=== PATIENT | female | born 1970 | race Caucasian/White ===

== ENCOUNTER 2017-12-22 02:52 | Emergency (ER) | payer MEDICAID ==
[~2017-12-22] VITALS: Ht 165.1 cm; Wt 66.8 kg
[2017-12-22 03:02] VITALS: BP 170/103
--- NOTE | 2017-12-22 03:02 | NUR ---
PT PRESENTS TO ED WITH C/O HIGH BLOOD GLUCOSE AND BURNING WITH URINATION AND FREQUENCY. PT STATES FOULD SMELLING URINE. PT STATES SHE HAS NOT TAKEN HER PO DM MEDS (METFORMIN). SHE IS OUT OF HER METOPROLOL 25 MG. PT STATES HX OF ANXIETY AND IS WITHOUT ANXIETY MEDS. VSS AT THIS TIME. A&OX4. POSITIONED IN BED FOR COMFORT. ER MD AWARE. CONTINUE TO MONITOR.
--- NOTE | 2017-12-22 03:02 | NUR ---
pt ambulated to bed 8 with vss.
[2017-12-22 03:53] VITALS: BP 170/103
--- NOTE | 2017-12-22 03:53 | NUR ---
Patient discharged with v/s stable. Written and verbal after care instructions given and explained. Patient alert, oriented and verbalized understanding of instructions. Ambulatory with steady gait. All questions addressed prior to discharge. ID band removed. Patient advised to follow up with PMD. Rx of Cipro, metformin, motrin, Prednisone, Metoprolol given. Patient educated on indication of medication including possible reaction and side effects. Opportunity to ask questions provided and answered.
== END 2017-12-22 03:02 | disposition home or self-care (01) ==
LOC: MED 02:52
DX: N39.0 Urinary tract infection, site not specified (principal); R05 Cough; R07.9 Chest pain, unspecified; E11.9 Type 2 diabetes mellitus without complications; I10 Essential (primary) hypertension; Z76.0 Encounter for issue of repeat prescription; Z90.49 Acquired absence of other specified parts of digestive tract
CPT/HCPCS: 81002; 81025; 99283

== ENCOUNTER 2018-01-25 14:06 | Inpatient (IN) | payer MEDICAID ==
[~2018-01-25] VITALS: Ht 157.5 cm; Wt 69.9 kg
[2018-01-25 14:11] VITALS: BP 102/63
--- NOTE | 2018-01-25 14:11 | NUR ---
PATIENT AMBULATED TO BED 9 AT THIS TIME.
--- NOTE | 2018-01-25 14:20 | NUR ---
47 bib self with c/o intermittent non radiating "sharp" midsternal/left sided chest with dry non productive cough x 2 days. Patient also report of SOB. RR are even and unlabored. Clear speech with full sentences. Skin is dry/warmth/color apprioriate for ethnicity. Pt is aox4 to person, place, situation, and time. NAD. VSS. Patient changed into gown and to cardiac, pulse, pulse ox, and bp monitoring. Awaiting er md cheema. Will continue to monitor.
[2018-01-25] MEDS ORDERED: ALBUTEROL SULFATE/IPRATROPIU 3 ML SOL IH ONE (15:00)
--- NOTE | 2018-01-25 15:40 | NUR ---
PT STATES THAT SHE WANTS TO "KILL MYSELF", MAYO KRUEGER MADE AWARE. JOSE BEAL TO COME EVALUATE
[2018-01-25] MEDS ORDERED: NACL 0.9% 1,000 ML IV ONE (15:41)
[2018-01-25] MEDS ORDERED: SODIUM BICARBONATE 8.4% PFS 50 MEQ/50 ML SYR IVP ONE (15:45)
--- NOTE | 2018-01-25 15:52 | NUR ---
PT STATES SHE IS GOING TO KILL HERSELF NOW. PT STATES, "I NEED TO KILL MYSELF NOW." ASKED PT WHY SHE NEEDS TO SKILL HERSELF AND PT WOULD NOT RESPOND. I ASKED PT IF SHE HAD A PLAN. PT WOULD NOT RESPOND. PT JUST STATES, "I NEED TO GO, AND KILL MYSELF." JOSE BEAL CALLED AT THIS TIME. PT MADE AWARE. PT STATES, "NO I AM GOING HOME, NOW I DIDN'T MEAN IT, I JUST HAVE ANXIETY, DON'T CALL THE PERMIT AGENT." EXPLAINED TO PT FOR HER SAFETY SHE CANNOT LEAVE AND NEEDS TO WAIT FOR JOSE BEAL TO COME
--- NOTE | 2018-01-25 15:53 | NUR ---
MAYO KRUEGER MADE AWARE OF PTS CURRENT STATUS
--- NOTE | 2018-01-25 15:56 | NUR ---
PT IS ATTEMPTING TO GET BACK OUT OF BED AT THIS TIME STATING SHE IS GOING HOME. CHARGE NURSE ZARINA AT BEDSIDE. EXPLAINED TO PT SHE CANNOT LEAVE AT THIS TIME AND NEEDS TO STAY IN BED.
[2018-01-25 16:02] LABS: BASOPHILS % (AUTO) 0.5 % (0.0-2.0); EOSINOPHILS # (AUTO) 0.1 K/uL (0-0.4); EOSINOPHILS % (AUTO) 1.1 % (0.0-4.0); HEMATOCRIT 36.6 % (36-48); LYMPHOCYTES # (AUTO) 1.8 K/uL (2.5-16.5); LYMPHOCYTES % (AUTO) 26.3 % (20.5-51.1); MEAN CORPUSCULAR HEMOGLOBIN 33 pg (27-31); MEAN CORPUSCULAR HGB CONC 33 g/dL (33-37); MEAN CORPUSCULAR VOLUME 100.3 fL (80-94); MONOCYTES # (AUTO) 0.2 K/uL (0.8-1.0); MONOCYTES % (AUTO) 2.5 % (1.7-9.3); NEUTROPHILS # (AUTO) 4.8 K/uL (1.8-7.7); NEUTROPHILS % (AUTO) 69.6 % (42.2-75.2); PLATELET COUNT (AUTO) 299 K/uL (140-450); RED BLOOD CELL COUNT(AUTO) 3.65 MIL/uL (4.20-5.40); RED CELL DISTRIBUTION WIDTH 12.6 % (11.6-13.7); WHITE BLOOD COUNT (AUTO) 6.9 K/uL (4.8-10.8)
[2018-01-25 16:15] LABS: ANION GAP 10.6 (8-16); CARBON DIOXIDE 19.9 mmol/L (21-32); CREATININE 1.3 mg/dL (0.6-1.3); POTASSIUM 4.5 mmol/L (3.5-5.1)
[2018-01-25 16:22] LABS: ALBUMIN 3.1 g/dL (3.4-5.0); PROTHROMBIN TIME 10.2 secs (10.8-13.4); TOTAL BILIRUBIN 0.2 mg/dL (0.0-1.0)
--- NOTE | 2018-01-25 16:28 | NUR ---
[place] [employer] AT BEDSIDE
--- NOTE | 2018-01-25 16:29 | NUR ---
vincent francisco by bedside evaluating patient...patient calm and cooperative at this time.
--- NOTE | 2018-01-25 16:55 | NUR ---
patient ambulated to and from bathroom with steady gait. patient is calm and cooperative. warm blanket given. nad. will continue to monitor. patient near nursing station. curtains open.
--- NOTE | 2018-01-25 17:02 | NUR ---
notified er md christianson that patient is requesting pain medication for headache. no new orders. patient denies any chest pain at this time.
[2018-01-25 17:05] LABS: ACETAMINOPHEN < 0.5 ug/ml (10-30); SALICYLATE < 2.8 mg/dL (2.8-20.0)
[2018-01-25 17:05] LABS: APPEARANCE,URINE CLEAR (CLEAR); BILIRUBIN,URINE NEGATIVE (NEGATIVE); BLOOD, URINE NEGATIVE (NEGATIVE); COLOR,URINE YELLOW (YELLOW); LEUKOCYTE ESTERASE ,URINE NEGATIVE (NEGATIVE); NITRITE, URINE NEGATIVE (NEGATIVE); PH,URINE 5.5 (5.0-9.0); UGLUCOSE NEGATIVE (NEGATIVE)
[2018-01-25 17:09] LABS: BARBITURATE, URINE NEG. ng/ml (NEG <=200); BENZODIAZEPINE, URINE NEG. ng/mL (NEG <=200); CANNABINOID, URINE NEG. ng/mL (NEG <=50); COCAINE, URINE NEG. ng/mL (NEG <=300); OPIATE, URINE NEG. ng/mL (NEG <=2000); PHENCYCLIDINE SCREEN,URINE NEG. ng/mL (NEG <=25)
[2018-01-25] MEDS: NACL 0.9% 1,000 ML IV SCH (18:35)
--- NOTE | 2018-01-25 18:45 | NUR ---
RECEIVED PT FROM ER VIA GURNEY. PT AMBULATED TO BED. PLACED ON BEDSIDE MONITOR. PT A/O X4. VERBAL. SKIN DRY AND WARM TO TOUCH. LUNGS DIMINISHED ON AUSCULTATION. ABDOMEN SOFT, ROUND AND NON-TENDER. PERIPHERAL LINE ON LFA 24G INTACT. NS RUNNING AT 100 ML/HR. BRUISES NOTED ON BOTH HANDS, LEFT LOWER EXTREMITY AND DRY SCAB NOTED ON RIGHT KNEE. KEPT HOB ELEVATED. BED IN LOW POSITION LOCKED. WILL CONTINUE TO MONITOR.
--- NOTE | 2018-01-25 18:45 | NUR ---
Patient will be admitted to care of [facility]. Admited to ICU. Will go to room ICU-3. Belongings list completed. Bedside Report to Nicole YANG.
[2018-01-25 18:50] VITALS: BP 155/72
[2018-01-25] MEDS ORDERED: DEXTROSE 50% 50 ML SYR IVP PRN (18:50)
--- NOTE | 2018-01-25 19:00 | NUR ---
DINNER TRAY PROVIDED TO PT.
[2018-01-25 19:01] LABS: CHOL/HDL RATIO 3.3 (1-4.5); FREE T4 (FREE THYROXINE) 1.06 ng/dL (0.76-1.46); MAGNESIUM 1.6 mg/dL (1.8-2.4); PHOSPHORUS 3.8 mg/dL (2.5-4.9); THYROID STIMULATING HORMONE 0.98 uIU/mL (0.34-3.74)
--- NOTE | 2018-01-25 19:10 | NUR ---
REPORT GIVEN TO ELECTRIC LOCOMOTIVE FIRER/FIREMAN RN FOR CONTINUITY OF CARE. PT ON STABLE CONDITION.
--- NOTE | 2018-01-25 19:12 | NUR ---
RECEIVED REPORT FROM AM SHIFT. PT ARRIVED ON UNIT AT 1845 VIA GURNEY. AOX 4. ABLE TO VERBALIZE NEEDS. FOLLOWS COMMANDS. AFEBRILE. PT ON ROOM AIR. EVEN UNLABORED BREATHING. LUNG SOUND CLEAR BILAT. SR ON MONITOR. ABD SOFT NONTENDER. BOWEL SOUNDS ACTIVE X 4 QUADRANTS. BLADDER NONDISTENDED. IV SITE R FA 24G. RUNNING NS @ 100 ML/HR. IV SITE PATENT. NO REDNESS OR INFILTRATION NOTED. ACTIVITY TOLERATED. DRY SCAB ON R KNEE NOTED. BRUISING BILAT HANDS. BED IN LOWEST POSITION. CALL LIGHT WITHIN REACH.
[2018-01-25] MEDS ORDERED: MAG SULF 2000 MG/WATER PREMIX 50 ML IV SCH (19:15)
[2018-01-25] MEDS ORDERED: ECOTRIN 81 MG TABEC PO ONE (19:20)
[2018-01-25] MEDS ORDERED: ASPIRIN 325 MG TAB PO SCH (19:20)
[2018-01-25] MEDS: HYDROcodone/APAP 7.5/325 MG 1 TAB PO PRN (19:24)
[2018-01-25 20:00] VITALS: BP 110/75
[2018-01-25] MEDS ORDERED: LORazepam 2 MG/ML VIAL IVP SCH (20:00)
--- NOTE | 2018-01-25 20:01 | NUR ---
PT RECEIVING MAG RIDER AT THIS TIME.
--- NOTE | 2018-01-25 20:03 | NUR ---
ADMINSTERED ATIVAN 2MG AT THIS TIME. WILL CONTINUE TO MONITOR.
[2018-01-25] MEDS: BLOOD GLUCOSE MONITORING 1 DEV DEV FS SCH (20:06)
--- NOTE | 2018-01-25 20:08 | NUR ---
DR. PHIPPS AT BEDSIDE TO EVALUATE PATIENT. WILL FOLLOW UP ANY ADDITIONAL ORDERS.
[2018-01-25] MEDS ORDERED: LORazepam 1 MG TAB PO SCH (21:00)
[2018-01-25] MEDS ORDERED: DOCUSATE SODIUM 100 MG GELCAP PO SCH (21:00)
--- NOTE | 2018-01-25 21:10 | NUR ---
DR. PRATER AT BEDSIDE AT THIS TIME TO EVALUATE PATIENT. WILL CONTINUE TO FOLLOW UP ANY ADDITIONAL ORDERS.
--- NOTE | 2018-01-25 21:22 | NUR ---
CALLED DR. PHIPPS FOR BANANA BAG ORDER 1L @ 100/ML. WILL ORDER ONE BAG DAILY
[2018-01-25] MEDS ORDERED: MULTIVITAMIN-12 10 ML, THIAMINE 100 MG, MAGNESIUM SULFATE 50% 2,000 MG, FOLIC ACID 1 MG... IV SCH ×5 (21:45)
[2018-01-25] MEDS ORDERED: MULTIVITAMIN-12 10 ML VIAL IV ONE (21:55)
[2018-01-25] MEDS ORDERED: FOLIC ACID 5 MG/ML SYR ONE (21:55)
[2018-01-25] MEDS ORDERED: MAGNESIUM SULFATE 50% 1000 MG/2 ML VIAL IV ONE (21:55)
[2018-01-25] MEDS ORDERED: THIAMINE 200 MG/2 ML VIAL ONE (21:55)
[2018-01-25 22:00] VITALS: BP 109/55
--- NOTE | 2018-01-25 22:15 | NUR ---
BANANA BAG 1L @ 100ML/HR HUNG AT THIS TIME FOR ETOH.
--- NOTE | 2018-01-25 22:20 | NUR ---
CALLED DR. ALBARRAN TO CLARIFY ORDER REGARDING ASPIRING. WILL FOLLOW UP WITH PHARMACY.
--- NOTE | 2018-01-25 23:14 | NUR ---
DR. PHIPPS AT BEDSIDE AT THIS TIME. UPDATED ON PATIENT CONDITION. WILL CONTINUE TO MONITOR.
[2018-01-26] VITALS (8 sets, daily range): BP systolic 107–157; BP diastolic 68–96
--- NOTE | 2018-01-26 00:15 | NUR ---
LAB AT BEDSIDE AT THIS TIME.
[2018-01-26] MEDS: LORazepam 2 MG/ML VIAL IVP PRN ×2 (00:23→08:15)
--- NOTE | 2018-01-26 00:26 | NUR ---
PT C/O ANXIETY AT THIS TIME. ATIVAN 2MG GIVEN IVP. WILL CONTINUE TO MONITOR.
--- NOTE | 2018-01-26 01:46 | NUR ---
RT FOR EKG AT BEDSIDE AT THIS TIME.
--- NOTE | 2018-01-26 03:47 | NUR ---
PT RESTING QUIETLY IN BED. NO SIGNS OF ACUTE DISTRESS AT THIS TIME.
--- NOTE | 2018-01-26 04:09 | NUR ---
PT VOIDED AT THIS TIME VIA BEDSIDE COMMODE. 400 ML OF URINE OUT. URINE CLEAR, YELLOW
[2018-01-26] MEDS: NACL 0.9% 1,000 ML IV SCH ×3 (04:35→16:23)
[2018-01-26 04:36] LABS: BASOPHILS % (AUTO) 0.5 % (0.0-2.0); EOSINOPHILS # (AUTO) 0.1 K/uL (0-0.4); EOSINOPHILS % (AUTO) 1.9 % (0.0-4.0); HEMATOCRIT 29.8 % (36-48); LYMPHOCYTES # (AUTO) 1.6 K/uL (2.5-16.5); LYMPHOCYTES % (AUTO) 21.9 % (20.5-51.1); MEAN CORPUSCULAR HEMOGLOBIN 34 pg (27-31); MEAN CORPUSCULAR HGB CONC 34 g/dL (33-37); MEAN CORPUSCULAR VOLUME 100.3 fL (80-94); MONOCYTES # (AUTO) 0.3 K/uL (0.8-1.0); MONOCYTES % (AUTO) 4.5 % (1.7-9.3); NEUTROPHILS # (AUTO) 5.3 K/uL (1.8-7.7); NEUTROPHILS % (AUTO) 71.2 % (42.2-75.2); PLATELET COUNT (AUTO) 246 K/uL (140-450); RED BLOOD CELL COUNT(AUTO) 2.98 MIL/uL (4.20-5.40); RED CELL DISTRIBUTION WIDTH 12.4 % (11.6-13.7); WHITE BLOOD COUNT (AUTO) 7.4 K/uL (4.8-10.8)
[2018-01-26 06:05] LABS: MAGNESIUM 2.5 mg/dL (1.8-2.4); PHOSPHORUS 3.3 mg/dL (2.5-4.9)
[2018-01-26 06:13] LABS: ANION GAP 14.5 (8-16); CARBON DIOXIDE 20.5 mmol/L (21-32)
[2018-01-26] MEDS: HYDROcodone/APAP 7.5/325 MG 1 TAB PO PRN ×2 (06:17→12:01)
--- NOTE | 2018-01-26 06:17 | NUR ---
PT C/O PAIN AT THIS TIME. NORCO GIVEN TO ALLEVIATE 6/10 PAIN. WILL CONTINUE TO REASSESS FOR PAIN FOR MEDICATION EFFECTIVENESS.
[2018-01-26] MEDS: BLOOD GLUCOSE MONITORING 1 DEV DEV FS SCH ×4 (06:31→21:38)
--- NOTE | 2018-01-26 07:05 | NUR ---
ENDORSED CARE TO AM SHIFT FOR CONTINUITY OF CARE. PT IN STABLE CONDITION. NO SIGNS OF ACUTE DISTRESS AT THIS TIME.
--- NOTE | 2018-01-26 07:10 | NUR ---
RECEIVED REPORT FROM PM NURSE, PT AWAKE, ALERT. ON ROOM AIR, NO S/S OF RESPIRATORY DISTRESS NOTED. LUNG SOUNDS CLEAR. BEDSIDE MONITOR SHOWS SR. PT HAS IV TO RIGHT FOREARM #22 AND LEFT FOREARM #24, RUNNING 0.9 NS AT 100 MLS/HR TO RIGHT FOREARM. SITE INTACT AND PATENT. PT AMBULATES TO BEDSIDE COMMODE VOIDING 250 MLS CLEAR YELLOW URINE. CALL LIGHT IN REACH, REORIENTED PT ENVIRONMENT,INTRODUCED MYSELF, POC EXPLAINED TO PT, PT VERBALIZED UNDERSTANDING, WILL CONTINUE TO MONITOR.
[2018-01-26] MEDS: ACETAMINOPHEN 325 MG TAB PO PRN ×2 (07:53→16:25)
--- NOTE | 2018-01-26 07:53 | NUR ---
TYLENOL 650 MG GIVEN DUE TO PT C/O HEADACHE.
--- NOTE | 2018-01-26 08:10 | NUR ---
PATIENT HAS BEEN SCREENED AND CATEGORIZED MODERATE NUTRITION RISK. PATIENT WILL BE SEEN WITHIN 3-5 DAYS OF ADMISSION. 01/28/18 01/30/[address]
--- NOTE | 2018-01-26 08:15 | NUR ---
ATIVAN 2 MG GIVEN DUE TO PT C/O AGITATION.
[2018-01-26] MEDS: ATORVASTATIN 20 MG TAB PO SCH (08:22)
[2018-01-26] MEDS: METOPROLOL 25 MG TAB PO SCH ×2 (08:23→21:44)
[2018-01-26] MEDS: LISINOPRIL 5 MG TAB PO SCH (08:23)
[2018-01-26] MEDS: MULTIVITAMIN 1 TAB PO SCH (08:23)
[2018-01-26] MEDS: PANTOPRAZOLE 40 MG TABEC PO SCH (08:24)
[2018-01-26] MEDS: THIAMINE 100 MG TAB PO SCH (08:24)
[2018-01-26] MEDS: FOLIC ACID 1 MG TAB PO SCH (08:24)
[2018-01-26] MEDS: ECOTRIN 81 MG TABEC PO SCH (08:24)
[2018-01-26] MEDS ORDERED: ECOTRIN 81 MG TABEC PO SCH (09:00)
[2018-01-26] MEDS: chlordiazePOXIDE 25 MG CAP PO SCH ×3 (09:57→16:26)
[2018-01-26] MEDS: DOCUSATE SODIUM 100 MG GELCAP PO SCH ×2 (09:58→21:45)
--- NOTE | 2018-01-26 10:19 | NUR ---
ASSISTED PT TO BEDSIDE COMMODE, PT VOIDS 250 MLS .
--- NOTE | 2018-01-26 10:33 | NUR ---
DR. ACEVES Y IN TO SEE PT, WILL FOLLOW UP.
--- NOTE | 2018-01-26 10:40 | NUR ---
PER. DR. KETAN Salamanca, OK TO TRANSFER.
--- NOTE | 2018-01-26 11:20 | NUR ---
PT AWAKE,ALERT. NO S/S OF RESPIRATORY DISTRESS NOTED. TRANSFERRED PT TO TELE 107 A BY ZOFIA, ACCOMPANIED WITH CHARGE NURSE AND ME. REPORT GIVEN TO JULIO CESAR YANG. ALL PERSONAL BELONGINGS WITH PT.
--- NOTE | 2018-01-26 11:30 | NUR ---
RECEIVED PT FROM ICU VIA BED. PT A/O X4. VERBAL. SKIN DRY AND WARM TO TOUCH. LUNGS CLEAR ON AUSCULTATION. ABDOMEN SOFT, ROUND AND NON-TENDER. PERIPHERAL LINE ON LFA 24G, RFA 22G INTACT. NS RUNNING AT 100 ML/HR. BRUISES NOTED ON BOTH HANDS, LEFT LOWER EXTREMITY AND DRY SCAB NOTED ON RIGHT KNEE. KEPT HOB ELEVATED. BED IN LOW POSITION LOCKED. WILL CONTINUE TO MONITOR.
--- NOTE | 2018-01-26 11:35 | NUR ---
VOMITED X1. WILL MEDICATE ORDER.
--- NOTE | 2018-01-26 11:36 | NUR ---
PAGED DR. PRATER'S OFFICE [phone] REGARDING TRANSFERRING. THE EXCHANGE AIR ROUTE TRAFFIC CONTROLLER STATES SHE WILL SEND A MESSAGE.
[2018-01-26] MEDS: ONDANSETRON 4 MG/2 ML VIAL IVP PRN ×2 (12:02→16:26)
[2018-01-26] MEDS: INSULIN LISPRO SLIDING SCALE 100 UNITS/ML VIAL SUBQ PRN ×3 (12:13→21:39)
--- NOTE | 2018-01-26 15:34 | NUR ---
PT STATED THAT HER DAUGHTER CAN PICK HER UP WHEN SHE GET DISCHARGE.
--- NOTE | 2018-01-26 15:34 | NUR ---
CALL RECEIVED FROM DAUGHTER GENE #[phone]. UPDATED PT CONDITION. SAID SHE WILL PICK PT WHEN PT GETS DISCHARGED. F/U DONE WITH DR. HURT FOR DISCHARGE, SAID PT WILL STAY PROBABLY TILL TOMORROW. PLEASE CALL DAUGHTER WHEN PT GET DISCHARGED.
--- NOTE | 2018-01-26 15:38 | NUR ---
PT SLEEPING IN BED COMFORTABLY AT THIS TIME. NO CHANGE IN LOC. WILL CONTINUE TO MONITOR.
--- NOTE | 2018-01-26 17:53 | NUR ---
RESTING IN BED. NO SOB. NO ACUTE RESPIRATORY DISTRESS NOTED. VS WNL. DAUGHTER AT BEDSIDE. WILL CONTINUE TO MONITOR. Addendum: 01/26/18 at 1754 by Nicole Davies RN WRONG PT CHARTING.
--- NOTE | 2018-01-26 17:54 | NUR ---
PT SITTING. EATING DINNER AT THIS TIME. DENIES N/V. DENIES PAIN. PT REQUESTED FOR ANOTHER TRAY. CALLED DIETARY LEFT MESSAGE.
--- NOTE | 2018-01-26 18:40 | NUR ---
RECEIVED PT FROM JULIO CESAR YANG PT ESTONIAN SPEAKER AAOX4 ROBERT SARAVIA NOT DISTRESS NOTED ON TELEMETRY SR IV ON RT WRIST INFUSING WELL ON TELEMTRY SR NOT DISTRESS NOTED INITIAL ASSESSMENT DONE Addendum: 01/27/18 at 0220 by Suki Koehler RN THIS ENDORSEMENT HAPPENED 01/26/18 AT 1940
--- NOTE | 2018-01-26 18:54 | NUR ---
SMALL PACK OF FOOD PROVIDED TO PT.
--- NOTE | 2018-01-26 19:38 | NUR ---
REPORT GIVEN TO DIRECTOR OF CASINO RN FOR CONTINUITY OF CARE. PT ON STABLE CONDITION.
--- NOTE | 2018-01-26 20:00 | NUR ---
PT IS ASSISTED TO THE RESTROOM VOIDING WELL DENIES ANY PAON OR DISTRESS ON TELEMETRY SR
[2018-01-26] MEDS ORDERED: MULTIVITAMIN-12 10 ML, THIAMINE 100 MG, MAGNESIUM SULFATE 50% 2,000 MG, FOLIC ACID 1 MG... IV SCH ×5 (21:00)
--- NOTE | 2018-01-26 21:30 | NUR ---
BLOOD SUGAR TEST 209 COVERAGE WITH4 UNIST SUBQ HUMALOG FOLLOW PROTOCOL
[2018-01-26] MEDS: DULoxetine 30 MG CAPDR PO SCH (21:44)
[2018-01-27] VITALS: BP 132/75
--- NOTE | 2018-01-27 | NUR ---
PT SLEEPING WELL NOT DISTRESS NOTED ON TELEMETRYSR
[2018-01-27 04:00] VITALS: BP 128/77
--- NOTE | 2018-01-27 04:00 | NUR ---
SPONGE BATH GIVEN , LINEN CHANGED ON TELEMETRY SR , PT VOIDING WELL , AMBULATES TO THE RESTROOM
[2018-01-27 05:56] LABS: BASOPHILS % (AUTO) 0.4 % (0.0-2.0); EOSINOPHILS # (AUTO) 0.2 K/uL (0-0.4); EOSINOPHILS % (AUTO) 2.4 % (0.0-4.0); HEMATOCRIT 27.4 % (36-48); HEMOGLOBIN 9.4 g/dL (12.0-16.0); LYMPHOCYTES # (AUTO) 1.5 K/uL (2.5-16.5); LYMPHOCYTES % (AUTO) 21.7 % (20.5-51.1); MEAN CORPUSCULAR HEMOGLOBIN 34 pg (27-31); MEAN CORPUSCULAR HGB CONC 34 g/dL (33-37); MEAN CORPUSCULAR VOLUME 100.1 fL (80-94); MONOCYTES # (AUTO) 0.4 K/uL (0.8-1.0); MONOCYTES % (AUTO) 5.3 % (1.7-9.3); NEUTROPHILS % (AUTO) 70.2 % (42.2-75.2); PLATELET COUNT (AUTO) 215 K/uL (140-450); RED BLOOD CELL COUNT(AUTO) 2.73 MIL/uL (4.20-5.40); RED CELL DISTRIBUTION WIDTH 12.2 % (11.6-13.7); WHITE BLOOD COUNT (AUTO) 7.1 K/uL (4.8-10.8)
[2018-01-27] MEDS: BLOOD GLUCOSE MONITORING 1 DEV DEV FS SCH ×2 (06:13→11:30)
[2018-01-27] MEDS: INSULIN LISPRO SLIDING SCALE 100 UNITS/ML VIAL SUBQ PRN ×2 (06:14→12:30)
[2018-01-27 06:21] LABS: ANION GAP 5.9 (8-16); CARBON DIOXIDE 20.4 mmol/L (21-32); POTASSIUM 4.3 mmol/L (3.5-5.1)
[2018-01-27 06:24] LABS: MAGNESIUM 1.9 mg/dL (1.8-2.4)
--- NOTE | 2018-01-27 06:46 | NUR ---
BLOOD SUGAR TEST 281 COVERAGE WITH 6 UNITS SUBQ HUMALOG FOLLOW PROTOCOL
--- NOTE | 2018-01-27 07:15 | NUR ---
RECEIVED PT FROM PLANETARIUM SKY SHOW TECHNICIAN NURSEKAYLA, PT IS AWAKE AND LYING ON THE BED WITH SIDE RAILS UP AND CALL LIGHT WITHIN REACH, PT HAS A BANANA BAG GOING AT HER RT FA G.22, INTACT AND PATEN. PT HAS ANOTHER IV LINE ON THE LEFT HAND G. 20 ON SALINE LOCK. PT VERBALIZED A PAIN RATE OF 8/10 AND WAS ASKING FOR A PAIN MEDICATION, ACKNOWLEDGED AND WILL MEDICATE PT. NO OTHER UNTOWARD SYMPTOM NOTED AND WILL CONTINUE TO MONITOR PT.
[2018-01-27 08:00] VITALS: BP 153/93
[2018-01-27] MEDS: ATORVASTATIN 20 MG TAB PO SCH (08:09)
[2018-01-27] MEDS: DOCUSATE SODIUM 100 MG GELCAP PO SCH (08:09)
[2018-01-27] MEDS: THIAMINE 100 MG TAB PO SCH (08:10)
[2018-01-27] MEDS: DULoxetine 30 MG CAPDR PO SCH (08:10)
[2018-01-27] MEDS: ECOTRIN 81 MG TABEC PO SCH (08:10)
[2018-01-27] MEDS: chlordiazePOXIDE 25 MG CAP PO SCH ×2 (08:11→12:27)
[2018-01-27] MEDS: FOLIC ACID 1 MG TAB PO SCH (08:11)
[2018-01-27] MEDS: LISINOPRIL 5 MG TAB PO SCH (08:12)
[2018-01-27] MEDS: MULTIVITAMIN 1 TAB PO SCH (08:12)
[2018-01-27] MEDS: PANTOPRAZOLE 40 MG TABEC PO SCH (08:12)
[2018-01-27] MEDS: HYDROcodone/APAP 7.5/325 MG 1 TAB PO PRN (08:12)
[2018-01-27] MEDS: METOPROLOL 25 MG TAB PO SCH (08:13)
--- NOTE | 2018-01-27 08:15 | NUR ---
PT IS AWAKE AND VITAL SIGNS WAS TAKEN AND ORAL AM MEDICATIONS GIVEN TO THE PT AND PT TOLERATED IT. WILL CONTINUE TO MONITOR PT.
[2018-01-27] MEDS ORDERED: MULTIVITAMIN-12 10 ML, THIAMINE 100 MG, MAGNESIUM SULFATE 50% 2,000 MG, FOLIC ACID 1 MG... IV ONE ×5 (08:30)
[2018-01-27] MEDS: NACL 0.9% 1,000 ML IV SCH (08:31)
[2018-01-27] MEDS ORDERED: metFORMIN 500 MG TAB PO SCH (09:00)
--- NOTE | 2018-01-27 09:12 | NUR ---
PT' PAIN LEVEL WAS RE-ASSESSED AND PT WAS NOTED TO BE SLEEPING ON THE BED. WILL CONTINUE TO MONITOR PT.
[2018-01-27] MEDS: PHENAZOPYRIDINE 100 MG TAB PO SCH ×2 (11:03→14:16)
--- NOTE | 2018-01-27 11:30 | NUR ---
PT'S BLOOD GLUCOSE CHECK WAS DONE AND RESULT IS 298 AND 6 UNITS OF INSULIN COVERAGE NEEDED.
[2018-01-27 12:00] VITALS: BP 138/84
--- NOTE | 2018-01-27 12:30 | NUR ---
PT IS AWAKE AND ORAL MEDICATION AND INSULIN WAS GIVEN TO PT AND PT TOLERATED IT.
[2018-01-27] MEDS ORDERED: DULO30EC PO (12:32)
[2018-01-27] MEDS ORDERED: METF500T PO (12:32)
--- NOTE | 2018-01-27 13:04 | NUR ---
ACKNOWLEDGED A DISCHARGED ORDER FRO THE PT FROM DR. HURT. WILL FACILITATE DISCHARGED PROCESS.
[2018-01-27] MEDS ORDERED: INFLUENZA VIRUS VACCINE QUAD 0.5 ML SYR IMVAC SCH (14:45)
--- NOTE | 2018-01-27 15:37 | NUR ---
FLU VACCINE WAS GIVEN TO PT NOW VIA THE IM ROUTE IN THE LEFT DELTOID. PT TOLERATED IT.
[2018-01-27 16:00] VITALS: BP 132/79
--- NOTE | 2018-01-27 16:10 | NUR ---
DISCHARGED PT VIA SKIP LOAD DRIVER DO, WITH LICENSE PLATE NO [id number], OF A DARK [employer] CAR. DISCHARGE TEACHINGS, INSTRUCTIONS AND PRESCRIPTIONS GIVEN TO PT AND PT VERBALIZED UNDERSTANDING. IV LINES AND ARM BANDS REMOVED. PT IS STABLE AT THIS TIME. DAUGHTER'S PT WAS INFORMED THAT PT WAS ALREADY PICKED UP BY THE SKIP LOAD DRIVER.
[2018-01-28] MEDS ORDERED: metFORMIN 500 MG TAB PO SCH (08:00)
== END 2018-01-27 16:10 | disposition home or self-care (01) | DRG 243 ==
LOC: MED 14:06 → MIC 18:08 → MTU 01-26 11:21
PROVIDERS: ADMIT General Practice; ATTEND General Practice
PROC: 3E0234Z Introduction of Serum, Toxoid and Vaccine into Muscle, Percutaneous Approach (ICD-10-PCS; principal; 2018-01-27)
DX: K21.9 Gastro-esophageal reflux disease without esophagitis (principal); G92 Toxic encephalopathy; E44.0 Moderate protein-calorie malnutrition; F10.129 Alcohol abuse with intoxication, unspecified; E87.2 Acidosis; E11.65 Type 2 diabetes mellitus with hyperglycemia; E83.42 Hypomagnesemia; I10 Essential (primary) hypertension; F41.1 Generalized anxiety disorder; E78.1 Pure hyperglyceridemia; E78.5 Hyperlipidemia, unspecified; F32.9 Major depressive disorder, single episode, unspecified; Y90.8 Blood alcohol level of 240 mg/100 ml or more; E83.51 Hypocalcemia; E83.39 Other disorders of phosphorus metabolism; Z68.28 Body mass index [BMI] 28.0-28.9, adult; Z59.0 Homelessness; Z79.4 Long term (current) use of insulin; Z23 Encounter for immunization; Z90.49 Acquired absence of other specified parts of digestive tract; Z91.14 Patient's other noncompliance with medication regimen
CPT/HCPCS: 36415; 36600; 71045; 80048; 80053; 80305; 81003; 81025; 82150; 82550; 82803; 82948; 83036; 83690; 83735; 83880; 84100; 84134; 84439; 84443; 84484; 85025; 85379; 85610; 85730; 87081; 90658; 93005; 94640; 96361; 96374; 99285; A9153; G0480; G0482; J1815; J2060; J2405; J3411; J3475; J3490; J7030; J7620; Q0092